=== PATIENT | male | born 1960 | race Caucasian/White ===

== ENCOUNTER 2018-02-20 12:03 | Outpatient (CLI) | payer BC ==
[2018-02-20 12:58] LABS: Lactic Acid 2.9 mmol/L (0.5-2.2)
[2018-02-20 13:02] LABS: ALT (SGPT) 42 U/L (8-55); AST (SGOT) 115 U/L (5-34); Albumin 3.5 g/dL (3.5-5.0); Alkaline Phosphatase 211 U/L (40-150); Anion Gap 17 mmol/L (10-20); BUN (Urea Nitrogen) 17 mg/dL (8.4-25.7); Bilirubin, Total 2.4 mg/dL (0.2-1.2); CRP (Inflammatory) 22.71 mg/dL (= or < 0.5); Calc. Creatinine Clearance 0 mL/min (70-130); Calcium 9.7 mg/dL (7.8-10.44); Carbon Dioxide 21 mmol/L (22-29); Chloride 97 mmol/L (98-107); Estimated GFR-MDRD 85; Globulin 3.2 g/dL (2.4-3.5); Glucose 114 mg/dL (70-105); Potassium 3.2 mmol/L (3.5-5.1); Protein, Total 6.7 g/dL (6.0-8.3); Sodium 132 mmol/L (136-145)
[2018-02-20 13:34] LABS: Hemoglobin 12.3 g/dL (14.0-18.0); Mean Corpuscular HGB CONC 32.2 g/dL (32.0-36.0); Mean Corpuscular Hemoglobin 28.4 pg (27.0-31.0); Platelet Count 489 thou/uL (130-400); RBC Distribution Width 14.5 % (11.5-14.5); Red Blood Cell (RBC) Count 4.32 mill/uL (4.70-6.10); White Blood Cell (WBC) Count 21.4 thou/uL (4.8-10.8)
[2018-02-20 13:35] LABS: Band 7 % (5-11); Eosinophils 1 % (0-10); Lymphocytes 17 % (21-51); MDiff Complete? YES; Monocytes 7 % (0-10); Neutrophil 68 % (42-75); PLT Morphology Comment Appears Adequate
== END 2018-02-20 12:04 | disposition home or self-care (01) ==
LOC: NAV LABSP 12:03
PROVIDERS: ATTEND Internal Medicine
DX: R50.9 Fever, unspecified (principal)
CPT/HCPCS: 36415; 80053; 83605; 85025; 85652; 86140

== ENCOUNTER 2018-02-20 14:22 | Emergency (ER) | payer BC ==
[2018-02-20] MEDS ORDERED: Ondansetron PF 4 MG/2 ML Vial ONE (15:53)
[2018-02-20] MEDS ORDERED: Morphine 4 MG/ML VIAL ONE (15:53)
[2018-02-20] MEDS ORDERED: Sodium Chloride 0.9% 1,000 ML ONE (16:18)
[2018-02-20] MEDS ORDERED: Sodium Chloride 0.9% 250 ML 250 ML ONE (16:19)
--- NOTE | 2018-02-20 18:19 | RAD ---
PORTABLE SUPINE CHEST: 02/20/18 HISTORY: Elevated white blood count. Fever. Heart size is within normal limits. There are atheroscleroti changes of the aorta. I do not see a def inite confluent infiltrative process. No signs of edema. IMPRESSION: No active intrathoracic disease. POS: [facility]
--- NOTE | 2018-02-20 19:24 | CT ---
PELVIS CT SCAN WITH IV CONTRAST: 02/20/18 HISTORY: 57-year-old male with elevated white blood cell count and bilateral hip pain. History of prior extens nelly pelvic fractures and internal fixation. COMPARISON: 07/24/17 CT. There are very extensive metal plate and screws stabilizing the left ilium superiorly and inferiorly as well as the abnormally widened left SI joint region. There is also metal plate and screws stabiliz ing the right and left superior ischiopubic rami and pubis. There is also a very elongated transverse screw which extends from the left ilium through the sacrum into the right ilium. There are incomplet simeon healed extensively comminuted fractures of the left hemipelvis, persistent abnormally widened lef t SI joint although improved from the presurgical study. There are also incompletely healed severely comminuted fractures of the right and left superior and inferior ischiopubic rami and pubis. The left iliacus muscle is somewhat enlarged relative to the right but this was enlarged previously and proba ventura related to a large intramuscular hematoma from the extensive left sided pelvic fractures. There i s no evidence for soft tissue intrapelvic abscess or abnormal fluid collection. There is an abnormal appearance to the right SI joint which is new when compared to the prior CT scan of 07/24/17. Possibili ties include that of some insufficiency type fractures, possibly related to some instability of the e xtensive postsurgical pelvis and resultant insufficiency fractures. The possibility of this represent ing some type of right sacroiliitis or even osteomyelitis cannot be totally excluded, although there is no significant component of soft tissue density around this. IMPRESSION: Very extensive displaced incompletely healed pelvic fractures with extensive internal fixation change s. Irregularity and some abnormal widening of the right SI joint which is a new finding when compared to the 07/24/17 CT scan. A transverse screw transfixes through the superior portion of the right SI frankie int. This abnormal appearance of the SI joint could certainly be related to some extensive insufficie ncy or stress type fractures of the right SI joint secondary to some overall instability of the exten sive left sided pelvic fixation changes. Another consideration would be that of osteomyelitis althoug h I favor this being noninfectious given the appearance as well as the lack of associated soft tissue component which I would expect to be much more prominent if this is osteomyelitis. If osteomyelitis is a strong concern clinically, then a followup white blood cell scan might be considered. No evidenc e for soft tissue intrapelvic abscess or abnormal fluid collection. This was reviewed in consensus with Dr. Cochran. POS: [facility]
--- NOTE | 2018-02-20 19:35 | CT ---
LEFT LOWER EXTREMITY CT SCAN WITH IV CONTRAST: History: 57-year-old male with elevated white blood cell count and bilateral hip pain, confusion. FINDINGS: Extensive post-surgical changes noted involving the left and right hemipelvis with extensive metal pl ate and screws placed with extensive susceptibility artifact. There are extensive incompletely healed comminuted fractures of the left ileum, left SI joint, and right and left superior and inferior isch ial pubic rami with marked displacement. There is some minimal thickening of the left iliacus muscle without evidence for focal abnormal low signal within it. This is probably some residual from the pre vious hematoma and hemorrhagic post-traumatic hemorrhagic changes. The duodenal muscles on the left s juni do not show any evidence for intramuscular abscess or myonecrosis. IMPRESSION: Extensive post-operative metal plate and screws and transverse internal fixation screws stabilizing t he pelvis. Slight asymmetric thickening of the left iliacus muscle without evidence for focal area of abnormal attenuation that would suggest an abscess. This may represent some residual hematoma and po st-traumatic hemorrhagic changes from the extensive left sided pelvic fracture. The gluteal muscles a re slightly heterogeneous but no evidence for intramuscular abnormal fluid collection. Minimal diffus e subcutaneous fat stranding. No evidence for left sided femoral fracture. There is some medial displ acement of the left lateral bladder wall from the extensive displaced left pubic fractures. POS: [facility]
== END 2018-02-20 17:30 | disposition short-term general hospital (02) ==
LOC: NAV ERS 14:22
DX: M25.552 Pain in left hip (principal); D72.829 Elevated white blood cell count, unspecified; E78.5 Hyperlipidemia, unspecified; I10 Essential (primary) hypertension; F17.210 Nicotine dependence, cigarettes, uncomplicated
CPT/HCPCS: 36415; 71045; 72193; 80053; 82550; 83605; 83690; 85025; 85379; 85652; 86140; 87040; 87077; 87149; 96365; 96374; 96375; J2270; J2405; J3370; J7050

== ENCOUNTER 2018-05-08 16:29 | Outpatient (CLI) | payer BC | END 2018-05-08 16:30 | disposition home or self-care (01) | LOC: NAV ULT 16:29 | PROVIDERS: ATTEND Internal Medicine | DX: B37.6 Candidal endocarditis (principal); I08.1 Rheumatic disorders of both mitral and tricuspid valves | CPT/HCPCS: 87040; 93306 ==

== ENCOUNTER 2019-03-09 14:07 | Outpatient (CLI) | payer OTHER ==
--- NOTE | 2019-03-11 11:31 | ULT ---
US Soft Tissue Other History: Groin swelling Comparison: Reference made to a CT pelvis January 2018 Findings: The superficial soft tissues of the groin was interrogated with ultrasound. No abnormal mas s is appreciated. Impression: No abnormality the superficial soft tissues. Of note, given the extensive prior surgical changes of the pelvis, ultrasound would be insufficient to evaluate for osteomyelitis or infection of the bone. A CT examination with contrast recommended for further evaluation.
== END 2019-03-09 14:08 | disposition home or self-care (01) ==
LOC: NAV ULT 14:07
DX: R19.09 Other intra-abdominal and pelvic swelling, mass and lump (principal)
CPT/HCPCS: 76999

== ENCOUNTER 2019-05-10 14:25 | Emergency (ER) | payer MEDICAID, OTHER ==
[2019-05-10] MEDS ORDERED: Sodium Chloride 0.9% 1,000 ML ONE ×2 (14:48→15:57)
[2019-05-10] MEDS ORDERED: Ketorolac Tromethamine 30 MG/ML VIAL ONE (14:48)
--- NOTE | 2019-05-10 15:25 | RAD ---
SINGLE VIEW CHEST: HISTORY: Cough. COMPARISON: 03/01/2018 FINDINGS: A single view of the chest shows a normal sized cardiomediastinal silhouette with atherosclerotic ashley cifications in the aorta. There is stable elevation of the right hemidiaphragm. Increased interstitia l markings are present. There is under-penetration of this exam, causing limitation. There are questi onable superimposed air space opacities in the right hilar region. IMPRESSION: Possible right sided perihilar infiltrate. This could also be artifactual secondary to under-penetrat ion of the chest radiograph. POS: [facility]
[2019-05-10 15:28] LABS: ALT (SGPT) 37 U/L (8-55); AST (SGOT) 90 U/L (5-34); Albumin 2.9 g/dL (3.4-4.8); Alkaline Phosphatase 197 U/L (40-110); Anion Gap 17 mmol/L (10-20); BUN (Urea Nitrogen) 31 mg/dL (8.4-25.7); Bilirubin, Total 2.7 mg/dL (0.2-1.2); Calc. Creatinine Clearance 0 mL/min (70-130); Calcium 8.4 mg/dL (7.8-10.44); Carbon Dioxide 18 mmol/L (23-31); Chloride 95 mmol/L (98-107); Estimated GFR-MDRD 43; Globulin 2.6 g/dL (2.4-3.5); Glucose 115 mg/dL (80-115); Potassium 4.4 mmol/L (3.5-5.1); Protein, Total 5.5 g/dL (5.8-8.1); Sodium 126 mmol/L (136-145)
[2019-05-10 15:35] LABS: Band 1 % (5-11); Hemoglobin 12.7 g/dL (14.0-18.0); Lymphocytes 16 % (21-51); MDiff Complete? YES; Macrocytosis SLIGHT = 6-15 cells (100X) (0-5/hpf); Mean Corpuscular HGB CONC 32.7 g/dL (32.0-36.0); Mean Corpuscular Hemoglobin 33.3 pg (27.0-31.0); Mean Platelet Volume 9.4 fL (7.4-10.4); Monocytes 6 % (0-10); Neutrophil 77 % (42-75); Platelet Count 256 thou/uL (130-400); Platelet Morphology Comment Appears Adequate; Polychromasia SLIGHT = 2-3 cells (100X) (0-2/hpf); RBC Distribution Width 14.2 % (11.5-14.5); Red Blood Cell (RBC) Count 3.81 mill/uL (4.70-6.10); White Blood Cell (WBC) Count 30.1 thou/uL (4.8-10.8)
[2019-05-10] MEDS ORDERED: Sodium Chloride 0.9% 250 ML 250 ML ONE (15:58)
[2019-05-10] MEDS ORDERED: Azithromycin 500 MG VIAL ONE (15:58)
[2019-05-10] MEDS ORDERED: cefTRIAXone\\ROCEPHIN 1 GM VIAL ONE (15:58)
[2019-05-10] MEDS ORDERED: Sodium Chloride 0.9% 100 ML ONE (15:58)
[2019-05-10] MEDS ORDERED: Norepinephrine 4 MG/4 ML VIAL ONE (17:36)
[2019-05-10] MEDS ORDERED: Dextrose 5% in Water 250 ML ONE (17:36)
[2019-05-10 18:31] LABS: Lactic Acid 2.6 mmol/L (0.5-2.2)
== END 2019-05-10 18:24 | disposition short-term general hospital (02) ==
LOC: NAV ERS 14:25
DX: J18.9 Pneumonia, unspecified organism (principal); A41.9 Sepsis, unspecified organism; G47.00 Insomnia, unspecified; K21.9 Gastro-esophageal reflux disease without esophagitis; E78.5 Hyperlipidemia, unspecified; E78.00 Pure hypercholesterolemia, unspecified; I10 Essential (primary) hypertension; M10.9 Gout, unspecified; Z86.73 Personal history of transient ischemic attack (TIA), and cerebral infarction without residual deficits; Z87.01 Personal history of pneumonia (recurrent); Z86.718 Personal history of other venous thrombosis and embolism; Z79.899 Other long term (current) drug therapy
CPT/HCPCS: 36556; 51702; 71045; 80053; 83605; 83880; 84484; 85025; 87040; 87804; 93005; 96361; 96365; 96367; 96375; J0456; J0696; J1885; J3490; J7050; J7070